=== PATIENT | male | born 1935 | race Caucasian/White ===

== ENCOUNTER 2019-05-14 16:05 | Emergency (ER) | payer MEDICARE ==
[~2019-05-14] VITALS: Ht 172.7 cm; Wt 77.3 kg
[~2019-05-14 16:05] MED LIST: CIPROFLOXACN500 MG PO
[2019-05-14 16:36] LABS: URINE BILIRUBIN - DIPSTICK NEGATIVE (NEGATIVE); URINE BLOOD DIPSTICK LARGE (NEGATIVE); URINE GLUCOSE - DIPSTICK NEGATIVE (NEGATIVE); URINE KETONE NEGATIVE (NEGATIVE); URINE LEUK ESTERASE NEGATIVE (NEGATIVE); URINE NITRITE - DIPSTICK NEGATIVE (Negative); URINE PROTEIN - DIPSTICK 30 mg/dL (NEG-TRACE); URINE SPECIFIC GRAVITY 1.025; URINE UROBILINOGEN - DIPSTICK 0.2 E.U./dL (0.2)
[2019-05-14 16:37] LABS: URINE COLOR BLOODY; URINE RBC TNTC RBC/hpf (0-5); URINE SQUAMOUS EPITHELIAL CELL FEW EPI/hpf (0-FEW)
[2019-05-14 16:58] VITALS: BP 121/77
== END 2019-05-14 16:58 | disposition home or self-care (01) ==
LOC: ED 16:05
DX: R31.9 Hematuria, unspecified (principal)

== ENCOUNTER 2019-05-17 19:44 | Emergency (ER) | payer MEDICARE ==
[~2019-05-17] VITALS: Ht 172.7 cm; Wt 77.3 kg
[2019-05-17 20:56] LABS: URINE BILIRUBIN - DIPSTICK NEGATIVE (NEGATIVE); URINE BLOOD DIPSTICK LARGE (NEGATIVE); URINE GLUCOSE - DIPSTICK NEGATIVE (NEGATIVE); URINE KETONE NEGATIVE (NEGATIVE); URINE LEUK ESTERASE NEGATIVE (NEGATIVE); URINE NITRITE - DIPSTICK NEGATIVE (Negative); URINE PROTEIN - DIPSTICK 100 mg/dL (NEG-TRACE); URINE SPECIFIC GRAVITY >=1.030; URINE UROBILINOGEN - DIPSTICK 0.2 E.U./dL (0.2)
[2019-05-17 20:57] LABS: URINE COLOR BLOODY; URINE RBC TNTC RBC/hpf (0-5)
[2019-05-17 21:40] VITALS: BP 129/74
== END 2019-05-17 21:40 | disposition home or self-care (01) ==
LOC: ED 19:44
DX: R31.9 Hematuria, unspecified (principal); N40.0 Benign prostatic hyperplasia without lower urinary tract symptoms

== ENCOUNTER 2021-11-30 14:25 | Emergency (ER) | payer MEDICARE ==
[~2021-11-30] VITALS: Ht 172.7 cm; Wt 75.9 kg
[2021-11-30] MEDS ORDERED: MEDDOSEPAK PO (15:13)
[2021-11-30] MEDS ORDERED: KEFLEX500 MG PO (15:13)
[2021-11-30 15:15] VITALS: BP 131/82
== END 2021-11-30 15:22 | disposition home or self-care (01) ==
LOC: ED 14:25
DX: T63.481A Toxic effect of venom of other arthropod, accidental (unintentional), initial encounter (principal); R22.32 Localized swelling, mass and lump, left upper limb; L29.8 Other pruritus

== ENCOUNTER 2023-07-11 18:02 | Emergency (ER) | payer OTHER, MEDICARE ==
[~2023-07-11] VITALS: Ht 172.7 cm; Wt 69.0 kg
[~2023-07-11 18:02] MED LIST changes: +KEFLEX500 MG PO; +MEDDOSEPAK PO
[2023-07-11 18:38] VITALS: BP 139/84
[2023-07-11] MEDS ORDERED: Acetaminophen 300 MG/Codeine 30 MG/COMBO PO ONE (20:35)
[2023-07-11] MEDS ORDERED: DICLOFENAC SODIUM 75 MG/TAB PO ONE (20:35)
[2023-07-11] MEDS ORDERED: TRAMADOL HCL50 MG PO (21:01)
[2023-07-11 21:04] VITALS: BP 139/84
== END 2023-07-11 21:09 | disposition home or self-care (01) | DRG 605 ==
LOC: ED 18:02
DX: S20.212A Contusion of left front wall of thorax, initial encounter (principal); V49.40XA Driver injured in collision with unspecified motor vehicles in traffic accident, initial encounter

== ENCOUNTER 2024-08-04 14:51 | Inpatient (IN) | payer MEDICARE ==
[~2024-08-04] VITALS: Ht 172.7 cm; Wt 73.2 kg
[2024-08-04] VITALS (26 sets, daily range): BP systolic 77–135; BP diastolic 55–101
[~2024-08-04 14:51] MED LIST changes: +TRAMADOL HCL50 MG PO
[2024-08-04] MEDS ORDERED: dilTIAZem HCL 50 MG/10 ML SDV IV ONE (15:10)
[2024-08-04] MEDS ORDERED: DILTIAZEM HCL 125 MG in SODIUM CHLORIDE 0.9% 100 ML IV ONE (15:10)
[2024-08-04] MEDS ORDERED: SODIUM CHLORIDE 0.9% 250 ML IV PRN ×3 (15:10→16:45)
[2024-08-04 15:52] LABS: BASO% 0.4 % (0-3); EOS% 0.1 % (0-8); IMMATURE GRANULOCYTES 0.3 % (0.0-5.0); LYMPH% 9.1 % (15-41); MEAN CELL VOLUME 83.1 fL CALC (80.0-100.0); MEAN CORPUSCULAR HGB 24.9 pG CALC (26.0-32.0); MONO% 9.3 % (2-13); NEUT# 16.84 thou/uL (1.82-7.42); NEUT% 80.8 % (42-76); RED BLOOD COUNT 3.61 mill/uL (4.70-6.10); RED CELL DISTRI WIDTH 19.8 % (11.5-15.5)
[2024-08-04 16:01] LABS: ALBUMIN 3.7 g/dL (3.2-5.0); BILIRUBIN, TOTAL 0.8 mg/dL (0.2-1.3); CREATININE 0.9 mg/dL (0.7-1.3); POTASSIUM 4.6 mmol/l (3.5-5.1); TOTAL PROTEIN 6.5 g/dL (6.3-8.2)
[2024-08-04] MEDS ORDERED: SODIUM CHLORIDE 0.9% 1,000 ML IV ONE (16:25)
[2024-08-04] MEDS ORDERED: AZITHROMYCIN 500 MG in SODIUM CHLORIDE 0.9% 500 ML IV ONE (16:25)
[2024-08-04] MEDS ORDERED: cefTRIAXone SODIUM 2 GM in SODIUM CHLORIDE 0.9% 100 ML IV ONE (16:25)
[2024-08-04 16:32] LABS: TSH, 3RD GENERATION 1.38 uIU/mL (0.47 - 4.68)
[2024-08-04] MEDS ORDERED: amioDARONE HCl 450 MG in SODIUM CHLORIDE 250 ML IV ONE (16:45)
[2024-08-04] MEDS ORDERED: ACETAMINOPHEN 325 MG/TAB PO PRN (17:25)
[2024-08-04] MEDS ORDERED: MAGNESIUM HYDROXIDE 30 ML UDC PO PRN (17:25)
[2024-08-04] MEDS ORDERED: ENOXAPARIN SODIUM 100 MG/ML SYR SC SCH (17:30)
[2024-08-04] MEDS ORDERED: ONDANSETRON HCl 4 MG/2 ML SDV IV PRN (20:55)
[2024-08-04] MEDS ORDERED: MAGNESIUM SULFATE HEPTAHYDRATE 50 ML IV ONE (20:55)
[2024-08-04] MEDS ORDERED: DOXYCYCLINE HYCLATE 100 MG in SODIUM CHLORIDE 0.9% 100 ML IV SCH (21:40)
[2024-08-05] VITALS (27 sets, daily range): BP systolic 90–138; BP diastolic 52–100
[2024-08-05] MEDS ORDERED: cefTRIAXone SODIUM 1 GM/VIAL SDV ONE (00:18)
[2024-08-05] MEDS ORDERED: SODIUM CHLORIDE 0.9% 50 ML IV ONE (00:20)
[2024-08-05] MEDS ORDERED: amioDARONE HCl 450 MG in SODIUM CHLORIDE 250 ML IV PRN (01:40)
[2024-08-05 05:26] LABS: HEMATOCRIT 30.2 % (39.0-50.0); MEAN CORPUSCULAR HGB 24.2 pG CALC (26.0-32.0); MEAN CORPUSCULAR HGB CONC 26.5 g/dL CAL (32.0-36.0); RED BLOOD COUNT 3.31 mill/uL (4.70-6.10)
[2024-08-05 05:27] LABS: MEAN CELL VOLUME 91.2 fL CALC (80.0-100.0)
[2024-08-05 05:36] LABS: ALBUMIN 3.4 g/dL (3.2-5.0); BILIRUBIN, TOTAL 0.7 mg/dL (0.2-1.3); CREATININE 1.2 mg/dL (0.7-1.3); MAGNESIUM 2.4 mg/dL (1.6-2.3); POTASSIUM 4.8 mmol/l (3.5-5.1); TOTAL PROTEIN 6.3 g/dL (6.3-8.2)
[2024-08-05] MEDS ORDERED: ALPRAZolam 0.5 MG/TAB PO PRN (05:40)
[2024-08-05] MEDS ORDERED: IPRATROPIUM-Albuterol 0.5MG-2.5MG/3 ML NEB PRN (07:35)
[2024-08-05] MEDS ORDERED: FUROSEMIDE 40 MG/4 ML SDV IV SCH (07:45)
[2024-08-05] MEDS ORDERED: SODIUM CHLORIDE 0.9% 100 ML IV ONE (08:44)
[2024-08-05] MEDS ORDERED: methylPREDNISolone Sod Succ 40 MG/ML SDV IV SCH (09:00)
[2024-08-05] MEDS ORDERED: METOPROLOL TARTRATE 25 MG/TAB PO SCH (14:30)
[2024-08-05] MEDS ORDERED: ENOXAPARIN SODIUM 80 MG/0.8 ML SYR SC SCH (21:00)
[2024-08-06] VITALS (31 sets, daily range): BP systolic 81–130; BP diastolic 41–108
[2024-08-06] MEDS ORDERED: FUROSEMIDE 40 MG/4 ML SDV IV SCH (07:45)
[2024-08-06 08:26] LABS: BASO% 0.3 % (0-3); HEMOGLOBIN 8.4 g/dl (14.0-18.0); IMMATURE GRANULOCYTES 0.3 % (0.0-5.0); MEAN CORPUSCULAR HGB 24.9 pG CALC (26.0-32.0); MONO% 4.4 % (2-13); NEUT# 15.11 thou/uL (1.82-7.42); RED BLOOD COUNT 3.38 mill/uL (4.70-6.10); RED CELL DISTRI WIDTH 19.4 % (11.5-15.5)
[2024-08-06 08:48] LABS: ALBUMIN 3.2 g/dL (3.2-5.0); BILIRUBIN, TOTAL 0.5 mg/dL (0.2-1.3); CREATININE 1.6 mg/dL (0.7-1.3); MAGNESIUM 2.4 mg/dL (1.6-2.3); POTASSIUM 5.1 mmol/l (3.5-5.1)
[2024-08-06] MEDS ORDERED: APIXABAN BASE 2.5 MG/TAB TAB PO SCH (09:00)
[2024-08-06 09:45] LABS: MEAN CELL VOLUME 82.8 fL CALC (80.0-100.0)
[2024-08-06] MEDS ORDERED: PANTOPRAZOLE SODIUM Sesquihydr 40 MG/TAB PO SCH (18:00)
[2024-08-07] VITALS (28 sets, daily range): BP systolic 78–114; BP diastolic 41–75
[2024-08-07] MEDS ORDERED: SODIUM CHLORIDE 0.9% 1,000 ML IV PRN (04:00)
[2024-08-07 04:31] LABS: HEMATOCRIT 25.5 % (39.0-50.0); HEMOGLOBIN 7.5 g/dl (14.0-18.0); MEAN CELL VOLUME 83.3 fL CALC (80.0-100.0); MEAN CORPUSCULAR HGB 24.5 pG CALC (26.0-32.0); MEAN CORPUSCULAR HGB CONC 29.4 g/dL CAL (32.0-36.0); RED BLOOD COUNT 3.06 mill/uL (4.70-6.10)
[2024-08-07 04:47] LABS: ALBUMIN 2.9 g/dL (3.2-5.0); BILIRUBIN, TOTAL 0.3 mg/dL (0.2-1.3); CREATININE 1.6 mg/dL (0.7-1.3); MAGNESIUM 2.4 mg/dL (1.6-2.3); POTASSIUM 4.5 mmol/l (3.5-5.1); TOTAL PROTEIN 5.6 g/dL (6.3-8.2)
[2024-08-07] MEDS ORDERED: Polyethylene Glycol 3350 17 GM/PKT PO PRN (09:00)
[2024-08-07] MEDS ORDERED: IRON SUCROSE COMPLEX 200 MG in SODIUM CHLORIDE 0.9% 100 ML IV SCH (09:00)
[2024-08-07] MEDS ORDERED: predniSONE 20 MG/TAB PO SCH (09:30)
[2024-08-07] MEDS ORDERED: DOXYCYCLINE HYCLATE 100 MG/VIAL IV ONE (09:36)
[2024-08-08] VITALS (8 sets, daily range): BP systolic 111–133; BP diastolic 63–86
[2024-08-08 04:51] LABS: HEMATOCRIT 29.1 % (39.0-50.0); HEMOGLOBIN 8.9 g/dl (14.0-18.0); MEAN CELL VOLUME 83.1 fL CALC (80.0-100.0); MEAN CORPUSCULAR HGB 25.4 pG CALC (26.0-32.0); MEAN CORPUSCULAR HGB CONC 30.6 g/dL CAL (32.0-36.0); RED BLOOD COUNT 3.5 mill/uL (4.70-6.10)
[2024-08-08 05:05] LABS: ALBUMIN 2.9 g/dL (3.2-5.0); CREATININE 1.4 mg/dL (0.7-1.3); MAGNESIUM 2.4 mg/dL (1.6-2.3); TOTAL PROTEIN 5.5 g/dL (6.3-8.2)
[2024-08-08 05:14] LABS: BILIRUBIN, TOTAL 0.5 mg/dL (0.2-1.3); POTASSIUM 5.4 mmol/l (3.5-5.1)
[2024-08-08] MEDS ORDERED: FUROSEMIDE 20 MG/TAB PO SCH (12:00)
[2024-08-08] MEDS ORDERED: AMIODARONE 200 MG/TAB PO SCH (12:00)
[2024-08-09 03:21] VITALS: BP 114/74
[2024-08-09 05:28] VITALS: BP 124/76
[2024-08-09 08:25] LABS: HEMATOCRIT 30.5 % (39.0-50.0); HEMOGLOBIN 9.5 g/dl (14.0-18.0); MEAN CELL VOLUME 84.7 fL CALC (80.0-100.0); MEAN CORPUSCULAR HGB 26.4 pG CALC (26.0-32.0); MEAN CORPUSCULAR HGB CONC 31.1 g/dL CAL (32.0-36.0); RED BLOOD COUNT 3.6 mill/uL (4.70-6.10); RED CELL DISTRI WIDTH 20.5 % (11.5-15.5)
[2024-08-09 08:35] LABS: ALBUMIN 3.1 g/dL (3.2-5.0); BILIRUBIN, TOTAL 0.6 mg/dL (0.2-1.3); MAGNESIUM 2.3 mg/dL (1.6-2.3); POTASSIUM 4.5 mmol/l (3.5-5.1); TOTAL PROTEIN 5.7 g/dL (6.3-8.2)
[2024-08-09] MEDS ORDERED: predniSONE 20 MG/TAB PO SCH (09:00)
[2024-08-09 11:04] VITALS: BP 109/64
[2024-08-09 13:40] VITALS: BP 139/91
[2024-08-09 18:54] VITALS: BP 122/76
[2024-08-09 19:45] VITALS: BP 114/51
[2024-08-10] VITALS (8 sets, daily range): BP systolic 91–124; BP diastolic 56–68
[2024-08-10 05:03] LABS: BASO% 0.3 % (0-3); EOS% 0.2 % (0-8); HEMOGLOBIN 9.6 g/dl (14.0-18.0); IMMATURE GRANULOCYTES 5.2 % (0.0-5.0); LYMPH% 10.5 % (15-41); MEAN CELL VOLUME 84.7 fL CALC (80.0-100.0); MEAN CORPUSCULAR HGB 27.1 pG CALC (26.0-32.0); MONO% 9.4 % (2-13); NEUT# 21.99 thou/uL (1.82-7.42); NEUT% 74.4 % (42-76); RED BLOOD COUNT 3.54 mill/uL (4.70-6.10)
[2024-08-10 05:23] LABS: ALBUMIN 2.7 g/dL (3.2-5.0); BILIRUBIN, TOTAL 0.5 mg/dL (0.2-1.3); CREATININE 1.1 mg/dL (0.7-1.3); MAGNESIUM 2.2 mg/dL (1.6-2.3); POTASSIUM 4.6 mmol/l (3.5-5.1); TOTAL PROTEIN 5.2 g/dL (6.3-8.2)
[2024-08-10] MEDS ORDERED: DOXYCYCLINE HYCLATE 100 MG/CAP PO SCH (21:00)
[2024-08-11 00:20] VITALS: BP 100/64
[2024-08-11 05:07] VITALS: BP 114/61
[2024-08-11 05:29] LABS: HEMATOCRIT 31.3 % (39.0-50.0); HEMOGLOBIN 9.9 g/dl (14.0-18.0); MEAN CELL VOLUME 84.8 fL CALC (80.0-100.0); MEAN CORPUSCULAR HGB 26.8 pG CALC (26.0-32.0); MEAN CORPUSCULAR HGB CONC 31.6 g/dL CAL (32.0-36.0); PLATELET COUNT 449 thou/uL (130-400); RED BLOOD COUNT 3.69 mill/uL (4.70-6.10); RED CELL DISTRI WIDTH 21.1 % (11.5-15.5)
[2024-08-11 05:37] LABS: ALBUMIN 2.8 g/dL (3.2-5.0); BILIRUBIN, TOTAL 0.7 mg/dL (0.2-1.3); CREATININE 0.9 mg/dL (0.7-1.3); MAGNESIUM 2.1 mg/dL (1.6-2.3); POTASSIUM 4.5 mmol/l (3.5-5.1); TOTAL PROTEIN 5.2 g/dL (6.3-8.2)
[2024-08-11 05:47] LABS: IMMATURE GRANULOCYTES 6.4 % (0.0-5.0); MANUAL DIFFERENTIAL YES
[2024-08-11 05:50] VITALS: BP 108/50
[2024-08-11 06:25] LABS: BAND 0 % (0-8); NUCLEATED RED BLOOD CELL 10 /100WBC (0-1)
[2024-08-11 06:26] LABS: HYPOCHROMIA MODERATE
[2024-08-11 06:27] LABS: TARGET CELLS FEW
[2024-08-11 09:31] VITALS: BP 121/62
[2024-08-11] MEDS ORDERED: CORDARONE/200 MG/TAB PO (10:28)
[2024-08-11] MEDS ORDERED: DOXYCYCLINE HY100 MG PO (10:28)
[2024-08-11] MEDS ORDERED: LOPRESSOR25 MG PO (10:28)
[2024-08-11] MEDS ORDERED: FUROSEMIDE20 MG PO (10:29)
[2024-08-11] MEDS ORDERED: PANTOPRAZOLE SO40 M1 PO (10:29)
== END 2024-08-11 13:48 | DRG 193 ==
LOC: ED 14:51 → ED-I 16:33 → ED 16:51 → ED-I 16:52 → MS2 08-05 11:23 → ED-I 08-05 11:24 → MS2 08-07 12:04
PROVIDERS: Family Medicine; Nurse Practitioner Family; ADMIT Internal Medicine; ATTEND Internal Medicine
PROC: 30233N1 Transfusion of Nonautologous Red Blood Cells into Peripheral Vein, Percutaneous Approach (ICD-10-PCS; principal; 2024-08-07)
DX: J18.9 Pneumonia, unspecified organism (principal); I50.21 Acute systolic (congestive) heart failure; N17.9 Acute kidney failure, unspecified; I42.0 Dilated cardiomyopathy; I48.0 Paroxysmal atrial fibrillation; D75.839 Thrombocytosis, unspecified; D50.9 Iron deficiency anemia, unspecified; D72.829 Elevated white blood cell count, unspecified; T38.0X5A Adverse effect of glucocorticoids and synthetic analogues, initial encounter; R19.5 Other fecal abnormalities; T50.2X5A Adverse effect of carbonic-anhydrase inhibitors, benzothiadiazides and other diuretics, initial encounter; R74.8 Abnormal levels of other serum enzymes; T46.2X5A Adverse effect of other antidysrhythmic drugs, initial encounter; Z90.49 Acquired absence of other specified parts of digestive tract; Z85.038 Personal history of other malignant neoplasm of large intestine; Z20.822 Contact with and (suspected) exposure to COVID-19
CPT/HCPCS: J0282; J0456; J0696; J1650; J1756; J1940; J2405; J3475; P9016

== ENCOUNTER 2024-08-18 15:25 | Emergency (ER) | payer MEDICARE ==
[2024-08-18] VITALS (23 sets, daily range): BP systolic 89–137; BP diastolic 40–82
[~2024-08-18] VITALS: Ht 172.7 cm; Wt 68.0 kg
[~2024-08-18 15:25] MED LIST changes: +CORDARONE/200 MG/TAB PO; +DOXYCYCLINE HY100 MG PO; +FUROSEMIDE20 MG PO; +LOPRESSOR25 MG PO; +PANTOPRAZOLE SO40 M1 PO
[2024-08-18 15:53] LABS: BASO% 0.5 % (0-3); EOS% 0.1 % (0-8); HEMATOCRIT 41.3 % (39.0-50.0); HEMOGLOBIN 12.8 g/dl (14.0-18.0); IMMATURE GRANULOCYTES 3.7 % (0.0-5.0); LYMPH% 6.6 % (15-41); MEAN CELL VOLUME 88.6 fL CALC (80.0-100.0); MEAN CORPUSCULAR HGB 27.5 pG CALC (26.0-32.0); MONO% 5.9 % (2-13); NEUT# 15.79 thou/uL (1.82-7.42); NEUT% 83.2 % (42-76); RED BLOOD COUNT 4.66 mill/uL (4.70-6.10); RED CELL DISTRI WIDTH 28.4 % (11.5-15.5)
[2024-08-18 16:13] LABS: ALBUMIN 4.1 g/dL (3.2-5.0); BILIRUBIN, TOTAL 1.3 mg/dL (0.2-1.3); TOTAL PROTEIN 7.4 g/dL (6.3-8.2)
[2024-08-18] MEDS ORDERED: PIPERACILLIN Sodium-Tazobactam 3.375 GM in SODIUM CHLORIDE 0.9% 100 ML IV ONE (17:50)
[2024-08-18 18:55] LABS: URINE BILIRUBIN - DIPSTICK Negative (NEGATIVE); URINE BLOOD DIPSTICK Negative (NEGATIVE); URINE GLUCOSE - DIPSTICK Negative (NEGATIVE); URINE KETONE 15 mg/dL (NEGATIVE); URINE LEUK ESTERASE Negative (NEGATIVE); URINE NITRITE - DIPSTICK Negative (Negative); URINE PH 5.5 (4.5-8.0); URINE PROTEIN - DIPSTICK Trace mg/dL (NEG-TRACE)
[2024-08-18 18:56] LABS: URINE COLOR Yellow
== END 2024-08-18 21:41 ==
LOC: ED 15:25
PROVIDERS: Family Medicine
DX: K56.699 Other intestinal obstruction unspecified as to partial versus complete obstruction (principal); K63.89 Other specified diseases of intestine; Z85.038 Personal history of other malignant neoplasm of large intestine; Z90.49 Acquired absence of other specified parts of digestive tract
CPT/HCPCS: J2543; Q9967